=== PATIENT | female | born 1955 | race Hispanic/Latino ===

== ENCOUNTER 2020-09-14 12:52 | Observation (INO) | payer OTHER ==
[~2020-09-14] VITALS: Ht 170.2 cm; Wt 112.5 kg
[2020-09-14] MEDS ORDERED: ONDANSETRON HCL INJ 2MG/ML 2ML 2 MG/ML VIAL IV STA (13:21)
[2020-09-14] MEDS ORDERED: ADENOSINE 6MG/2ML 3 ML ONE (13:28)
[2020-09-14] MEDS ORDERED: ADENOSINE 6 MG/2 ML VIAL IV ONE (13:30)
[2020-09-14] MEDS ORDERED: SODIUM CHLORIDE FLUSH 10 ML SYR INJ PRN (13:30)
[2020-09-14] MEDS ORDERED: CYMBALTA20 MG PO (13:53)
[2020-09-14] MEDS ORDERED: NEURONTIN300 MG PO (13:53)
[2020-09-14] MEDS ORDERED: METOPROLOL TART25 MG PO (13:53)
[2020-09-14] MEDS ORDERED: MORPHINE SULFATE INJ 2 MG/ML SYR IV PRN (14:15)
[2020-09-14] MEDS ORDERED: ONDANSETRON HCL INJ 2MG/ML 2ML 2 MG/ML VIAL IV PRN (14:15)
[2020-09-14] MEDS: FAMOTIDINE 20 MG/2 ML VIAL IV SCH (14:20)
[2020-09-14] MEDS ORDERED: FAMOTIDINE 20 MG/2 ML VIAL IV ONE (14:37)
[2020-09-14] MEDS ORDERED: ONDANSETRON HCL INJ 2MG/ML 2ML 2 MG/ML VIAL ONE (14:37)
[2020-09-14] MEDS ORDERED: KETOROLAC TROMETHAMINE 30 MG/ML VIAL IV STA (14:59)
[2020-09-14] MEDS ORDERED: SODIUM CHLORIDE 0.9% 500ML 500 ML IV ONE (15:00)
[2020-09-14] MEDS ORDERED: CEFTRIAXONE SOD 1 GM/NS 50 ML 50 ML IV ONE ×2 (15:00→15:18)
[2020-09-14] MEDS ORDERED: ASPIRIN 81 MG CHEW TAB PO ONE (15:15)
[2020-09-14] MEDS ORDERED: SODIUM CHLORIDE 0.9% 1000ML 1,000 ML ONE (15:18)
[2020-09-14] MEDS ORDERED: ASPIRIN 81 MG CHEW TAB ONE (15:40)
[2020-09-14] MEDS ORDERED: KETOROLAC TROMETHAMINE 30 MG/ML VIAL ONE (15:41)
[2020-09-14 16:13] VITALS: BP 107/76
[2020-09-14 16:37] VITALS: BP 100/55
[2020-09-14 17:11] LABS: CREATINE KINASE MB 0.6 ng/mL (0-5.0)
[2020-09-14 17:50] LABS: FREE THYROXINE INDEX 2.2028 (1.4-3.8); THYROID STIMULATING HORMONE 0.973 uIU/mL (0.350-4.940)
[2020-09-14] MEDS: SODIUM CHLORIDE 0.9% 1000ML 1,000 ML IV SCH (19:30)
[2020-09-14 21:00] VITALS: BP 104/71
[2020-09-14 21:13] VITALS: BP 104/71
[2020-09-14] MEDS: ACETAMINOPHEN 325 MG TAB PO PRN (23:28)
[2020-09-15] VITALS (8 sets, daily range): BP systolic 107–130; BP diastolic 66–93
[2020-09-15] MEDS: FAMOTIDINE 20 MG/2 ML VIAL IV SCH ×2 (02:42→16:07)
[2020-09-15] MEDS: SODIUM CHLORIDE 0.9% 1000ML 1,000 ML IV SCH ×3 (03:28→20:25)
[2020-09-15 05:27] LABS: BASOPHILS % 0.3 % (0.0-1.0); EOSINOPHILS # (AUTO) 0.1 (0.0-0.4); EOSINOPHILS % 0.8 % (0.0-6.0); HEMATOCRIT 33.6 % (34.2-44.1); HEMOGLOBIN 10.6 g/dL (12.0-16.0); LYMPHOCYTES # (AUTO) 1.6 (1.0-3.2); LYMPHOCYTES % 17.5 % (18.0-39.1); MEAN CORPUSCULAR HEMOGLOBIN 29.1 pg (28-32); MEAN CORPUSCULAR HGB CONC 31.5 g/dL (31-35); MEAN CORPUSCULAR VOLUME 92.3 fL (81-99); MONOCYTES # (AUTO) 1.8 (0.2-0.8); MONOCYTES % 18.9 % (4.4-11.3); NEUTROPHILS # (AUTO) 5.8 (2.1-6.9); NEUTROPHILS % 62.2 % (38.7-80.0); PLATELET COUNT 292 x10e3/uL (140-360); RED BLOOD COUNT 3.64 x10e6/uL (3.6-5.1)
[2020-09-15 05:49] LABS: CHOL/HDL RATIO 3.7 (3.0-3.6); MAGNESIUM 1.9 MG/DL (1.3-2.1)
[2020-09-15 06:22] LABS: ALANINE AMINOTRANSFERASE 11 IU/L (0-55); ALBUMIN 2.8 g/dL (3.5-5.0); ALBUMIN/GLOBULIN RATIO 0.9 (0.8-2.0); ALKALINE PHOSPHATASE 82 IU/L (40-150); BLOOD UREA NITROGEN 19 mg/dL (7-26); BUN/CREATININE RATIO 25 (6-25); CALCIUM 8.4 mg/dL (8.4-10.2); CARBON DIOXIDE 24 mmol/L (22-29); CHLORIDE 104 mmol/L (98-107); CREATININE, SERUM 0.77 mg/dL (0.57-1.11); EST GLOMERULAR FILTRATION RATE > 60 ML/MIN (60-); GLUCOSE 98 mg/dL (74-118); SODIUM 138 mmol/L (136-145)
[2020-09-15 06:38] LABS: CREATINE KINASE MB 0.6 ng/mL (0-5.0)
[2020-09-15 06:41] LABS: THYROID STIMULATING HORMONE 1.066 uIU/mL (0.350-4.940)
[2020-09-15] MEDS: ACETAMINOPHEN 325 MG TAB PO PRN ×2 (09:15→21:29)
[2020-09-15] MEDS: DULOXETINE HCL 20 MG DELAYED RELEASE PO SCH (09:19)
[2020-09-15] MEDS: ASPIRIN 325 MG TAB EC PO SCH (09:19)
[2020-09-15] MEDS: METOPROLOL TARTRATE 25 MG TAB PO SCH ×2 (09:20→16:37)
[2020-09-15 13:25] LABS: CREATINE KINASE MB 0.6 ng/mL (0-5.0)
[2020-09-15] MEDS ORDERED: CEFTRIAXONE SOD 1 GM/NS 50 ML 50 ML IV SCH (15:00)
[2020-09-16] VITALS (7 sets, daily range): BP systolic 107–139; BP diastolic 71–82
[2020-09-16] MEDS: FAMOTIDINE 20 MG/2 ML VIAL IV SCH (03:00)
[2020-09-16 05:05] LABS: BASOPHILS % 0.3 % (0.0-1.0); EOSINOPHILS # (AUTO) 0.2 (0.0-0.4); EOSINOPHILS % 1.8 % (0.0-6.0); HEMATOCRIT 36.2 % (34.2-44.1); HEMOGLOBIN 11.5 g/dL (12.0-16.0); LYMPHOCYTES # (AUTO) 1.6 (1.0-3.2); LYMPHOCYTES % 17.7 % (18.0-39.1); MEAN CORPUSCULAR HEMOGLOBIN 29.7 pg (28-32); MEAN CORPUSCULAR HGB CONC 31.8 g/dL (31-35); MEAN CORPUSCULAR VOLUME 93.5 fL (81-99); MONOCYTES # (AUTO) 1.5 (0.2-0.8); MONOCYTES % 15.9 % (4.4-11.3); NEUTROPHILS # (AUTO) 5.9 (2.1-6.9); PLATELET COUNT 342 x10e3/uL (140-360); RED BLOOD COUNT 3.87 x10e6/uL (3.6-5.1); RED CELL DISTRIBUTION WIDTH 12.8 % (11.7-14.4)
[2020-09-16 05:24] LABS: ANION GAP 13.9 mmol/L (8-16); BLOOD UREA NITROGEN 12 mg/dL (7-26); BUN/CREATININE RATIO 18 (6-25); CALCIUM 8.6 mg/dL (8.4-10.2); CARBON DIOXIDE 22 mmol/L (22-29); CHLORIDE 105 mmol/L (98-107); CREATININE, SERUM 0.65 mg/dL (0.57-1.11); EST GLOMERULAR FILTRATION RATE > 60 ML/MIN (60-); GLUCOSE 84 mg/dL (74-118); POTASSIUM 3.9 mmol/L (3.5-5.1); SODIUM 137 mmol/L (136-145)
[2020-09-16] MEDS: DULOXETINE HCL 20 MG DELAYED RELEASE PO SCH (09:00)
[2020-09-16] MEDS: ASPIRIN 325 MG TAB EC PO SCH (09:00)
[2020-09-16] MEDS: METOPROLOL TARTRATE 25 MG TAB PO SCH (09:01)
[2020-09-16] MEDS: SODIUM CHLORIDE 0.9% 1000ML 1,000 ML IV SCH (09:55)
[2020-09-16] MEDS ORDERED: CEFTRIAXONE SOD 2 GM/NS 100 ML 100 ML IV ONE (11:00)
== END 2020-09-16 16:59 | disposition home or self-care (01) ==
LOC: FSED 13:23 → ERHOLD 13:27 → MED/SURG2 16:11 → OBSVTOIN 09-15 16:00 → INTOOBSV 09-15 16:00
PROVIDERS: ADMIT Internal Medicine; ATTEND Internal Medicine
DX: I47.1 Supraventricular tachycardia (principal); R51.9 Headache, unspecified; N39.0 Urinary tract infection, site not specified; E86.0 Dehydration; I10 Essential (primary) hypertension; G62.9 Polyneuropathy, unspecified; F32.9 Major depressive disorder, single episode, unspecified; E66.01 Morbid (severe) obesity due to excess calories; Z68.38 Body mass index [BMI] 38.0-38.9, adult; Z91.14 Patient's other noncompliance with medication regimen; B95.5 Unspecified streptococcus as the cause of diseases classified elsewhere; Z20.822 Contact with and (suspected) exposure to COVID-19
CPT/HCPCS: 36415 ×3; 70450; 71046; 80048 ×2; 80053; 80061; 80076; 81003; 82550 ×2; 82553 ×2; 83735 ×2; 83880; 84436; 84443 ×2; 84479; 84484 ×2; 85025 ×3; 85379; 85610; 87086; 87186; 93005; 93306; 96374; 96375; 99284; G0378 ×3; J0153; J0696 ×3; J1885; J2405; J7030 ×3; U0002; J2270

== ENCOUNTER 2024-04-21 16:38 | Emergency (ER) | payer MEDICARE, OTHER ==
[~2024-04-21] VITALS: Ht 170.2 cm; Wt 103.1 kg
[~2024-04-21 16:38] MED LIST: CYMBALTA20 MG PO; METOPROLOL TART25 MG PO; NEURONTIN300 MG PO
[2024-04-21] MEDS ORDERED: ANALPRAM HC 2.530 GM PR (17:51)
[2024-04-21 17:56] VITALS: PULSE 94; RESP 16; TEMP 97.7; O2SAT 98
== END 2024-04-21 18:04 | disposition home or self-care (01) ==
LOC: FSED 16:48
DX: K64.4 Residual hemorrhoidal skin tags (principal); K62.89 Other specified diseases of anus and rectum; I10 Essential (primary) hypertension; E78.5 Hyperlipidemia, unspecified; C50.919 Malignant neoplasm of unspecified site of unspecified female breast
CPT/HCPCS: 99283

== ENCOUNTER → 2024-04-24 | Emergency (ER) | payer MEDICARE ==
[~2024-04-24] MED LIST changes: +ANALPRAM HC 2.530 GM PR
== END | disposition left against medical advice (07) ==
LOC: ER 23:20
DX: K64.9 Unspecified hemorrhoids (principal)

== ENCOUNTER 2024-09-14 14:23 | Emergency (ER) | payer MEDICARE ==
[~2024-09-14] VITALS: Ht 170.2 cm; Wt 103.0 kg
[2024-09-14 14:40] VITALS: PULSE 88; RESP 18; TEMP 98.6; O2SAT 100
[2024-09-14 15:20] LABS: BASOPHILS % 0.2 % (0.0-1.0); EOSINOPHILS % 0.2 % (0.0-6.0); HEMATOCRIT 36.7 % (34.2-44.1); HEMOGLOBIN 11.5 g/dL (12.0-16.0); LYMPHOCYTES # (AUTO) 0.9 (1.0-3.2); LYMPHOCYTES % 10.1 % (18.0-39.1); MEAN CORPUSCULAR HEMOGLOBIN 30.2 pg (28-32); MEAN CORPUSCULAR HGB CONC 31.3 g/dL (31-35); MEAN CORPUSCULAR VOLUME 96.3 fL (81-99); MONOCYTES # (AUTO) 0.8 (0.2-0.8); MONOCYTES % 9.7 % (4.4-11.3); NEUTROPHILS # (AUTO) 6.7 (2.1-6.9); NEUTROPHILS % 79.3 % (38.7-80.0); PLATELET COUNT 350 x10e3/uL (140-360); RED BLOOD COUNT 3.81 x10e6/uL (3.6-5.1); RED CELL DISTRIBUTION WIDTH 12.8 % (11.7-14.4); WHITE BLOOD COUNT 8.45 x10e3/uL (4.8-10.8)
[2024-09-14 15:35] LABS: ALBUMIN 3.7 g/dL (3.5-5.0); ALBUMIN/GLOBULIN RATIO 1.3 (0.8-2.0); BILIRUBIN,TOTAL 0.3 mg/dL (0.2-1.2); CALCIUM 9.4 mg/dL (8.4-10.2); CREATININE, SERUM 0.75 mg/dL (0.57-1.11); TOTAL PROTEIN 6.6 g/dL (6.5-8.1)
[2024-09-14] MEDS: KETOROLAC TROMETHAMINE 30 MG/ML VIAL IV STA (15:41)
[2024-09-14] MEDS ORDERED: LIDOCAINE 4% PATCH TP STA (16:32)
[2024-09-14 17:06] LABS: CLARITY,URINE HAZY (CLEAR); COLOR,URINE YELLOW (YELLOW)
[2024-09-14 17:07] LABS: BILIRUBIN,URINE NEGATIVE (NEGATIVE); GLUCOSE, URINE NEGATIVE (NEGATIVE); KETONES,URINE NEGATIVE (NEGATIVE); LEUKOCYTE ESTERASE ,URINE NEGATIVE (NEGATIVE); NITRITE,URINE NEGATIVE (NEGATIVE); PH,URINE 6.5 (5 - 7); PROTEIN,URINE DIPSTICK NEGATIVE (NEGATIVE); URINE UROBILINOGEN 0.2 mg/dL (0.2 - 1)
[2024-09-14 17:10] LABS: BACTERIA,URINE FEW /HPF; EPITHELIAL CELLS,URINE FEW /LPF; RBC,URINE 0-5 /HPF (0-5); WBC,URINE (MAN) 0-5 /HPF (0-5)
[2024-09-14] MEDS ORDERED: LIDOCAINE1 EACH EXT (17:24)
[2024-09-14] MEDS ORDERED: NAPROXEN250 MG PO (17:24)
== END 2024-09-14 17:50 | disposition home or self-care (01) ==
LOC: ER 15:12
DX: R10.9 Unspecified abdominal pain (principal); N20.0 Calculus of kidney; K57.90 Diverticulosis of intestine, part unspecified, without perforation or abscess without bleeding; I10 Essential (primary) hypertension; E78.5 Hyperlipidemia, unspecified; K21.9 Gastro-esophageal reflux disease without esophagitis; J45.909 Unspecified asthma, uncomplicated; G62.9 Polyneuropathy, unspecified; F32.A Depression, unspecified; Z85.3 Personal history of malignant neoplasm of breast; Z96.651 Presence of right artificial knee joint
CPT/HCPCS: 36415; 74176; 80053; 81001; 85025; 99284; J1885

== ENCOUNTER 2025-04-19 16:59 | Emergency (ER) | payer MEDICARE ==
[~2025-04-19] VITALS: Ht 170.2 cm; Wt 103.0 kg
[~2025-04-19 16:59] MED LIST changes: +LIDOCAINE1 EACH EXT; +NAPROXEN250 MG PO
[2025-04-19 17:18] VITALS: TEMP 97.5
[2025-04-19] MEDS: ONDANSETRON HCL INJ 2MG/ML 2ML 2 MG/ML VIAL IV STA (17:54)
[2025-04-19] MEDS: SODIUM CHLORIDE 0.9% 1000ML 1,000 ML IV STA (17:55)
[2025-04-19 17:59] LABS: BASOPHILS % 0.5 % (0.0-1.0); EOSINOPHILS % 1.0 % (0.0-6.0); LYMPHOCYTES % 18.6 % (18.0-39.1); MONOCYTES % 12.6 % (4.4-11.3); NEUTROPHILS % 66.2 % (38.7-80.0); RED CELL DISTRIBUTION WIDTH 13.1 % (11.7-14.4)
[2025-04-19 18:00] VITALS: PULSE 88; RESP 16
[2025-04-19 18:11] LABS: INR 0.88
[2025-04-19 18:13] LABS: CORONAVIRUS COVID-19 AG NEGATIVE (NEGATIVE)
[2025-04-19 18:14] LABS: EST GLOMERULAR FILTRATION RATE 98.0 ML/MIN (>=60)
[2025-04-19 18:48] LABS: LEUKOCYTE ESTERASE ,URINE NEGATIVE (NEGATIVE); PROTEIN,URINE DIPSTICK NEGATIVE (NEGATIVE); URINE UROBILINOGEN 0.2 mg/dL (0.2 - 1)
[2025-04-19] MEDS ORDERED: ONDANSETRON ODT4 MG SL (19:14)
[2025-04-19 19:30] VITALS: BP 128/77; PULSE 71; RESP 16; TEMP 98.3; O2SAT 98
== END 2025-04-19 19:40 | disposition home or self-care (01) ==
LOC: ER 18:05
DX: R00.2 Palpitations (principal); R51.9 Headache, unspecified; R11.0 Nausea; R53.1 Weakness; I10 Essential (primary) hypertension; E78.5 Hyperlipidemia, unspecified; K21.9 Gastro-esophageal reflux disease without esophagitis; F41.9 Anxiety disorder, unspecified; F32.A Depression, unspecified; G62.9 Polyneuropathy, unspecified; R94.31 Abnormal electrocardiogram [ECG] [EKG]; Z85.3 Personal history of malignant neoplasm of breast
CPT/HCPCS: 36415; 70450; 71045; 80053; 81001; 82550; 83735; 83880; 84484; 85025; 85610; 85730; 87426; 93005; 99284; J2405; J2470; J7030